=== PATIENT | male | born 1990 | race Caucasian/White ===

== ENCOUNTER 2017-09-06 21:55 | Emergency (ER) | payer SELFPAY ==
[2017-09-06 22:46] VITALS: BP 131/90
[2017-09-06] MEDS ORDERED: CEPHALEXIN 500 MG CAPSULE PO ONE (23:13)
[2017-09-06] MEDS ORDERED: PREDNISONE 20 MG TABLET PO ONE (23:14)
[2017-09-06] MEDS ORDERED: HYDROCODONE/ACETAMINOPHEN 5-325 MG (6 TAB/ER DISP) PO PRN (23:14)
[2017-09-06] MEDS ORDERED: DIPH/PERTUSS(ACELL)/TETANUS VAC/PF 0.5 ML SYR (>=10YO) IM ONE (23:16)
--- NOTE | 2017-09-06 23:19 | ER Document Report ---
HPI - HPI Patient complains to provider of: rash Pain Level: 3 Context: Patient is a 26-year-old male that comes emergency department for chief complaint of a rash to his right arm that has spread to his right abdomen where he lay his arm while he was sleeping. Several days ago symptoms started right after [place] He states he pulled a small piece of wood out of him after working as well. He states the area on his arm is the worst and it has become red, itchy, tender, and he has had some clear drainage and a tiny amount of discolored drainage from what look like vesicles. He denies fever or chills, nausea or vomiting. His tetanus is not up-to-date. - MUSCULOSKELETAL Musculoskeletal: REPORTS: Extremity pain Past Medical History - General Information source: Patient - Social History Smoking Status: Current Every Day Smoker Frequency of alcohol use: None Drug Abuse: None Lives with: Family Family History: Reviewed & Not Pertinent Patient has suicidal ideation: No Patient has homicidal ideation: No Renal/ Medical History: Denies: Hx Peritoneal Dialysis GI Medical History: Reports: Hx Gastroesophageal Reflux Disease Past Surgical History: Reports: Hx Orthopedic Surgery - right finger sx - Immunizations Hx Diphtheria, Pertussis, Tetanus Vaccination: Yes Vertical Provider Document - CONSTITUTIONAL General Appearance: WD/WN, No Apparent Distress - INFECTION CONTROL TRAVEL OUTSIDE OF THE [place] IN LAST 30 DAYS: No - HEENT HEENT: Atraumatic, Normocephalic - NECK Neck: Normal Inspection - RESPIRATORY Respiratory: Breath Sounds Normal, No Respiratory Distress O2 Sat by Pulse Oximetry: 97 - CARDIOVASCULAR Cardiovascular: Regular Rate, Regular Rhythm - GI/ABDOMEN Gastrointestinal: Abdomen Soft, Abdomen Non-Tender - MUSCULOSKELETAL/EXTREMETIES Musculoskeletal/Extremeties: Tender - Right forearm over the flexor surface with a wide area of erythema, irritated skin, a few recently open vesicles appear to be present, minimal amount of clear drainage, there is some warmth to the extra upper extremity as well but no overt induration, no fluctuance. Able to move wrist and elbow and full range of motion without difficulty. Normal distal pulses and sensation. - NEURO Level of Consciousness: Awake, Alert, Appropriate Motor/Sensory: No Motor Deficit, No Sensory Deficit - DERM Integumentary: Rash - There is a scattered erythematous rash over the right mid to lower abdomen with effusion raised and excoriated areas. No significant erythema, heat, induration, or fluctuance noted Course - Re-evaluation Re-evalutation: Appears to have contact dermatitis, worst on the right forearm, there is warmth and erythema suggesting secondary cellulitis but there is no induration or fluctuance suggesting abscess, there is no significant swelling or tenderness suggesting compartment syndrome or necrotizing fasciitis. Patient is afebrile and well-appearing with no distress. He states the areas are itchy and now his arm is becoming somewhat painful. Treating for cellulitis, contact dermatitis, discussed recommendations and return precautions in detail. Patient states understanding and agreement. - Vital Signs Vital signs: Temp Pulse Resp BP Pulse Ox 97.9 F 71 20 131/90 H 97 09/06/17 22:43 09/06/17 22:43 09/06/17 22:43 09/06/17 22:43 09/06/17 22:43 Discharge - Discharge Clinical Impression: Rash Condition: Stable Disposition: HOME, SELF-CARE Additional Instructions: Examination consistent with contact dermatitis and what appears to be early infection/cellulitis in your arm. Please take the antibiotic Keflex as prescribed to completion, take the prednisone for the reaction/rash as prescribed. Take Benadryl or similar medication for itching if needed. Keep area clean, clean gently with soap and water. Return for any concerning or worsening symptoms including spreading redness, fever of 100.4 or greater, swelling, or any other concerning symptoms. Prescriptions: Cephalexin Monohydrate [Keflex 500 mg Capsule] 500 mg PO QID #28 capsule Prednisone 10 mg PO ASDIR PRN #74 tablet PRN Reason: Forms: Return to Work
== END 2017-09-06 23:32 | disposition home or self-care (01) ==
LOC: ER 21:55
DX: R21 Rash and other nonspecific skin eruption (principal); L29.8 Other pruritus; F17.200 Nicotine dependence, unspecified, uncomplicated
CPT/HCPCS: 99282; 90471; 90715; J7512